=== PATIENT | female | born 1975 | race African-American/Black ===

== ENCOUNTER 2016-11-07 14:38 | Emergency (ER) | payer MEDICAID ==
[~2016-11-07] VITALS: Ht 144.8 cm; Wt 50.0 kg
[~2016-11-07 14:38] MED LIST: AMOX500T PO; BENA25TA8 PO; DEXTLIQ PO; FERR325T PO; MOTR200T PO
[2016-11-07 14:41] VITALS: BP 108/53; PULSE 53; RESP 16; TEMP 98.9; O2SAT 96
[2016-11-07] MEDS ORDERED: TRICTAB PO (15:05)
[2016-11-07 15:19] LABS: MEAN CORPUSCULAR HGB CONC 36.5 % (32.0-36.0)
--- NOTE | 2016-11-07 15:19 | PD ---
HPI Chief Complaint: Syncope/Near-Syncope Time Seen by Provider: 15:20 Travel History International Travel<30 days: No Contact w/Intl Traveler<30days: No Traveled to known affect area: No History of Present Illness HPI This is a 41-year-old female who is with a last menstrual period of August 06 estimated around 13 weeks . She presents for evaluation of syncopal episode. She reports that prior to arrival she was walking from her car to a store when she felt dizzy and then passed out. This was reportedly witnessed by her sister who is not present at this time. There is no reported seizure activity and the syncopal episode was brief. She does have a recorded history of seizure disorder. At this point in time the patient is feeling somewhat lightheaded but otherwise feels fine. She has had no chest pain, shortness of breath, nausea or vomiting, abdominal pain, vaginal bleeding , dysuria, flank pain. The patient currently sees resident Dr. August for her care. She saw her yesterday. She has an appointment for her first ultrasound for screening and dating scheduled for tomorrow. Denies any recent illness. She says that she has been eating and drinking normally. No other complaints. PFSH Past Medical History Diminished Hearing: No Seizures: Yes Ulcer: Yes (STATES SHE HAD CROHN"S DISEASE BUT IT "WENT AWAY") ?: LMP: 08/06/16 : 5 Para: 2 Miscarriage: 3 : 0 Social History Alcohol Use: No Tobacco Use: No Substance Use: No Allergies-Medications (Allergen,Severity, Reaction): Coded Allergies: Valproic Acid (Verified Allergy, Severe, 11/07/16) HIVES Carbamazepine (Verified Allergy, Mild, Rash, 11/07/16) Reported Meds & Prescriptions Reported Meds & Active Scripts Active Reported Ferrous Sulfate 325 Mg Tab 325 Mg PO DAILY ( Vit-Ferrous Fumarate) 1 Tab Tab 1 Tab PO DAILY Review of Systems Except as stated in HPI: all other systems reviewed are Neg Physical Exam Narrative GENERAL: Well developed well-nourished female in no acute distress SKIN: Warm and dry. HEAD: Atraumatic. Normocephalic. EYES: Pupils equal and round. No scleral icterus. No injection or drainage. ENT: No nasal bleeding or discharge. Mucous membranes pink and moist. NECK: Trachea midline. No JVD. CARDIOVASCULAR: Regular rate and rhythm. No murmur appreciated. RESPIRATORY: No accessory muscle use. Clear to auscultation. Breath sounds equal bilaterally. GASTROINTESTINAL: Abdomen soft, non-tender. No guarding. MUSCULOSKELETAL: No obvious deformities. No edema NEUROLOGICAL: Awake and alert. No obvious cranial nerve deficits. Motor grossly within normal limits. Normal speech. PSYCHIATRIC: Appropriate mood and affect; insight and judgment normal. Data Data Last Documented VS Vital Signs Date Time Temp Pulse Resp B/P Pulse Ox O2 Delivery O2 Flow Rate FiO2 11/07/16 16:59 70 16 109/53 98 Room Air 11/07/16 14:41 98.9 Orders Electrocardiogram (11/07/16 15:18) Complete Blood Count With Diff (11/07/16 15:18) Comprehensive Metabolic Panel (11/07/16 15:18) Magnesium (Mg) (11/07/16 15:18) Urinalysis - C+S If Indicated (11/07/16 15:18) Beta Hcg (Quant/Titer) (11/07/16 15:19) Urine Culture (11/07/16 14:24) Labs Laboratory Tests Test 11/07/16 11/07/16 14:24 15:51 Urine Color YELLOW Urine Turbidity HAZY Urine pH 6.5 Urine Specific [place] 1.031 Urine Protein 30 mg/dL Urine Glucose (UA) NEG mg/dL Urine Ketones NEG mg/dL Urine Occult Blood NEG Urine Nitrite NEG Urine Bilirubin NEG Urine Urobilinogen 8.0 MG/DL Urine Leukocyte Esterase SMALL Urine RBC 6 /hpf Urine WBC 8 /hpf Urine WBC Clumps RARE Urine Squamous Epithelial 7 /hpf Cells Urine Amorphous Sediment RARE Urine Bacteria RARE /hpf Urine Mucus MANY /lpf Microscopic Urinalysis Comment CULTURE INDICATED White Blood Count 6.5 TH/MM3 Red Blood Count 3.17 MIL/MM3 Hemoglobin 9.4 GM/DL Hematocrit 25.9 % Mean Corpuscular Volume 81.5 FL Mean Corpuscular Hemoglobin 29.8 PG Mean Corpuscular Hemoglobin 36.5 % Concent Red Cell Distribution Width 13.0 % Platelet Count 284 TH/MM3 Mean Platelet Volume 7.2 FL Neutrophils (%) (Auto) 62.8 % Lymphocytes (%) (Auto) 19.8 % Monocytes (%) (Auto) 14.6 % Eosinophils (%) (Auto) 2.5 % Basophils (%) (Auto) 0.3 % Neutrophils # (Auto) 4.1 TH/MM3 Lymphocytes # (Auto) 1.3 TH/MM3 Monocytes # (Auto) 1.0 TH/MM3 Eosinophils # (Auto) 0.2 TH/MM3 Basophils # (Auto) 0.0 TH/MM3 CBC Comment AUTO DIFF Differential Comment AUTO DIFF CONFIRMED Platelet Estimate NORMAL Platelet Morphology Comment NORMAL Sodium Level 137 MEQ/L Potassium Level 3.6 MEQ/L Chloride Level 102 MEQ/L Carbon Dioxide Level 26.9 MEQ/L Anion Gap 8 MEQ/L Blood Urea Nitrogen 11 MG/DL Creatinine 0.55 MG/DL Estimat Glomerular Filtration 146 ML/MIN Rate Random Glucose 85 MG/DL Calcium Level 9.8 MG/DL Magnesium Level 1.9 MG/DL Total Bilirubin 0.3 MG/DL Aspartate Amino Transf 16 U/L (AST/SGOT) Alanine Aminotransferase 27 U/L (ALT/SGPT) Alkaline Phosphatase 50 U/L Total Protein 7.6 GM/DL Albumin 3.7 GM/DL Human Chorionic Gonadotropin, 15862 MIU/ML Quant MDM Medical Decision Making Medical Screen Exam Complete: Yes Emergency Medical Condition: Yes Medical Record Reviewed: Yes Differential Diagnosis Vasovagal syncope, orthostatic hypotension, dehydration, arrhythmia, electrolyte abnormality, hypoglycemia, ruptured ectopic Narrative Course This is a 41-year-old female currently last menstrual period approximately August 06 presents for evaluation after a witnessed syncopal episode prior to arrival. This patient was initially seen in triage were basic lab work, EKG and pelvic ultrasound been ordered. The patient will be moved to a medical bed and one becomes bill. Ajith Burleson Nov 07, 2016 15:19
[2016-11-07 16:15] LABS: AUTOMATED NEUTROPHIL # 4.1 TH/MM3 (1.8-7.7); BASOPHIL % 0.3 % (0.0-2.0); EOSINOPHIL # 0.2 TH/MM3 (0-0.4); EOSINOPHIL % 2.5 % (0.0-4.0); HEMATOCRIT 25.9 % (35.0-46.0); LYMPH % 19.8 % (9.0-44.0); LYMPHOCYTE # 1.3 TH/MM3 (1.0-4.8); MEAN CELL VOLUME 81.5 FL (80.0-100.0); MEAN CORPUSCULAR HEMOGLOBIN 29.8 PG (27.0-34.0); MONO % 14.6 % (0.0-8.0); NEUT % 62.8 % (16.0-70.0); PLATELET COUNT 284 TH/MM3 (150-450); RED BLOOD COUNT 3.17 MIL/MM3 (4.00-5.30); WHITE BLOOD COUNT 6.5 TH/MM3 (4.0-11.0)
[2016-11-07 16:18] LABS: HEMO FLAGS AUTO DIFF
[2016-11-07 16:29] LABS: ALT (GPT) 27 U/L (10-53); ANION GAP 8 MEQ/L (5-15); AST (GOT) 16 U/L (15-37); BICARBONATE 26.9 MEQ/L (21.0-32.0); BLOOD UREA NITROGEN 11 MG/DL (7-18); CHLORIDE 102 MEQ/L (98-107); GLOMERULAR FILTRATION RATE 146 ML/MIN (>89); MAGNESIUM 1.9 MG/DL (1.5-2.5); POTASSIUM 3.6 MEQ/L (3.5-5.1); SODIUM (NA) 137 MEQ/L (136-145)
[2016-11-07 16:31] LABS: ALKALINE PHOSPHATASE 50 U/L (45-117); TOTAL BILIRUBIN ADULT 0.3 MG/DL (0.2-1.0)
[2016-11-07 16:44] LABS: BETA HCG QUANT 47726 MIU/ML (0-5)
[2016-11-07 16:59] VITALS: BP 109/53; PULSE 70; RESP 16; O2SAT 98
[2016-11-07 17:00] LABS: BACTERIA, URINE RARE /hpf; BLOOD, URINE NEG (NEG); GLUCOSE,URINE NEG (NEG); KETONE, URINE NEG (NEG); MUCUS URINE MANY /lpf (OCC); NITRITE,URINE NEG (NEG); PH, URINE 6.5 (5.0-8.5); SQUAMOUS EPITHELIAL CELL URINE 7 /hpf (0-5); URINE COLOR YELLOW (YELLW/STRAW)
[2016-11-07] MEDS ORDERED: FERR325T PO (17:01)
[2016-11-07 17:02] LABS: COMMENT (UR) CULTURE INDICATED; CULTURE IF INDICATED CULTURE INDICATED
[2016-11-07 17:16] LABS: PLATELET ESTIMATE SMEAR NORMAL (NORMAL); PLATELET MORPHOLOGY NORMAL (NORMAL); SCAN/DIFF AUTO DIFF CONFIRMED
--- NOTE | 2016-11-07 17:21 | PD ---
Physical Exam Time Seen by Provider: 17:12 Narrative 41-year-old female approximately 13 weeks presents to the emergency department for evaluation of lightheadedness and syncopal event. Patient seen by provider in triage are initiated workup, please see his documentation. The patient states that she was walking across the [employer] parking lot with her sister when she began to feel lightheaded and passed out. States that her sister caught her, she did not land on the ground or hit her head. States that she immediately woke up. States that she has felt slightly lightheaded since this occurred but has had no more episodes of syncope. She denies any pain. Denies any chest pain, shortness of breath, nausea, vomiting, abdominal pain, vaginal bleeding, bloody stool, black stool, cough or cold symptoms. States that she is following up over at the [facility] for her and has an appointment tomorrow. No other complaints. GENERAL: Well-nourished and well-developed pleasant female patient in no acute distress who is nontoxic appearing. SKIN: Warm and dry. HEAD: Normocephalic and atraumatic. EYES: No injection, drainage, or hyphema noted. PERRLA. EOMI. ENT: No nasal drainage noted. Oropharynx is clear. NECK: Supple and the trachea is midline. CARDIOVASCULAR: Regular rate and rhythm. RESPIRATORY: Breath sounds are equal bilaterally with no accessory muscle use, wheezing, rhonchi, or crackles. GASTROINTESTINAL: Abdomen is soft, non-tender, and nondistended. RECTAL EXAM: No masses or tenderness, stool is brown. Performed in the presence of Ning MARTIN. MUSCULOSKELETAL: No obvious deformities, swelling, cyanosis, or ecchymosis is present throughout the upper and lower extremities. Patient has full range of motion without any signs of neurovascular compromise. Strength 5/5 upper and lower extremities equal bilaterally. NEUROLOGICAL: Awake, alert, and oriented. Normal speech and gait. Cranial nerves are grossly intact. Data Data Last Documented VS Vital Signs Date Time Temp Pulse Resp B/P Pulse Ox O2 Delivery O2 Flow Rate FiO2 11/07/16 16:59 70 16 109/53 98 Room Air 11/07/16 14:41 98.9 Orders Electrocardiogram (11/07/16 15:18) Complete Blood Count With Diff (11/07/16 15:18) Comprehensive Metabolic Panel (11/07/16 15:18) Magnesium (Mg) (11/07/16 15:18) Urinalysis - C+S If Indicated (11/07/16 15:18) Beta Hcg (Quant/Titer) (11/07/16 15:19) Urine Culture (11/07/16 14:24) Labs Laboratory Tests Test 11/07/16 11/07/16 14:24 15:51 Urine Color YELLOW Urine Turbidity HAZY Urine pH 6.5 Urine Specific [place] 1.031 Urine Protein 30 mg/dL Urine Glucose (UA) NEG mg/dL Urine Ketones NEG mg/dL Urine Occult Blood NEG Urine Nitrite NEG Urine Bilirubin NEG Urine Urobilinogen 8.0 MG/DL Urine Leukocyte Esterase SMALL Urine RBC 6 /hpf Urine WBC 8 /hpf Urine WBC Clumps RARE Urine Squamous Epithelial 7 /hpf Cells Urine Amorphous Sediment RARE Urine Bacteria RARE /hpf Urine Mucus MANY /lpf Microscopic Urinalysis Comment CULTURE INDICATED White Blood Count 6.5 TH/MM3 Red Blood Count 3.17 MIL/MM3 Hemoglobin 9.4 GM/DL Hematocrit 25.9 % Mean Corpuscular Volume 81.5 FL Mean Corpuscular Hemoglobin 29.8 PG Mean Corpuscular Hemoglobin 36.5 % Concent Red Cell Distribution Width 13.0 % Platelet Count 284 TH/MM3 Mean Platelet Volume 7.2 FL Neutrophils (%) (Auto) 62.8 % Lymphocytes (%) (Auto) 19.8 % Monocytes (%) (Auto) 14.6 % Eosinophils (%) (Auto) 2.5 % Basophils (%) (Auto) 0.3 % Neutrophils # (Auto) 4.1 TH/MM3 Lymphocytes # (Auto) 1.3 TH/MM3 Monocytes # (Auto) 1.0 TH/MM3 Eosinophils # (Auto) 0.2 TH/MM3 Basophils # (Auto) 0.0 TH/MM3 CBC Comment AUTO DIFF Differential Comment AUTO DIFF CONFIRMED Platelet Estimate NORMAL Platelet Morphology Comment NORMAL Sodium Level 137 MEQ/L Potassium Level 3.6 MEQ/L Chloride Level 102 MEQ/L Carbon Dioxide Level 26.9 MEQ/L Anion Gap 8 MEQ/L Blood Urea Nitrogen 11 MG/DL Creatinine 0.55 MG/DL Estimat Glomerular Filtration 146 ML/MIN Rate Random Glucose 85 MG/DL Calcium Level 9.8 MG/DL Magnesium Level 1.9 MG/DL Total Bilirubin 0.3 MG/DL Aspartate Amino Transf 16 U/L (AST/SGOT) Alanine Aminotransferase 27 U/L (ALT/SGPT) Alkaline Phosphatase 50 U/L Total Protein 7.6 GM/DL Albumin 3.7 GM/DL Human Chorionic Gonadotropin, 15744 MIU/ML Quant MDM Supervised Visit with AILEEN: No Differential Diagnosis Symptomatic anemia versus ectopic versus dehydration versus allegedly abnormality Narrative Course 41-year-old female 13 weeks presents to the emergency department for evaluation of lightheadedness and syncopal episode. Patient is afebrile, vital signs are stable. Physical examination is essentially unremarkable. Patient appears well overall. Stool is guaiac negative. She is not having any vaginal bleeding. Labs were ordered per triage provider. CBC shows anemia with hemoglobin of 9.4, hematocrit 25.9. I did look in the patient's EMR which shows last week she had outpatient labs and her hemoglobin was 10.8. CMP is unremarkable. Beta HcG is 47,726. Urinalysis shows 30 protein, he 0.0 urobilinogen, small leukocyte esterase, 6 red blood cells, 8 blood cells, rare bacteria, rare white blood cell clumps, many mucus. Ultrasound confirms IUP. Patient will be treated for urinary tract infection with Macrobid. She has remained stable and without complaint while here in the emergency department. She ambulates without difficulty and her lightheadedness has nearly resolved. She has an appointment with her OBGYN tomorrow. Will include in discharge paperwork to have repeat CBC tomorrow to assess any drop in hemoglobin. Instructed to return if worsening lightheadedness, chest pain, shortness of breath, syncope, etc. Patient verbalizes understanding and is in agreement with treatment plan. I discussed the case with my attending physician Dr. Esquivel who is aware of the patients history, physical examination findings, and treatment plan. Diagnosis Primary Impression: Syncope Qualified Code: R55 - Syncope, unspecified syncope type Additional Impressions: Anemia Qualified Code: D64.9 - Anemia, unspecified type Urinary tract infection Qualified Code: N39.0 - Urinary tract infection with hematuria, site unspecified Intrauterine Referrals: Social Group Worker Primary Care Physician Patient Instructions: General Instructions Additional Instruction: Take medication as prescribed with food and a full glass of water. Follow-up with your Primary Care Physician/Social Group Worker tomorrow and get a repeat CBC to evaluate for any change in Hbg/Hct. Return to the ED for any acute worsening of symptoms. Med/Other Pt SpecificInfo: Prescription(s) given Scripts Nitrofurantoin Monohydrate Macrocrystals (Macrobid)100 Mg [id number] Mg PO BID 10 Days Ref 0 Prov:Tod Esquivel MD 11/07/16 Disposition: 01 DISCHARGE HOME Condition: Stable Lulú Medel Nov 07, 2016 17:21
[2016-11-07] MEDS ORDERED: MACR100C2 PO (17:50)
--- NOTE | 2016-11-07 17:54 | PD ---
Data Data Last Documented VS Vital Signs Date Time Temp Pulse Resp B/P Pulse Ox O2 Delivery O2 Flow Rate FiO2 11/07/16 16:59 70 16 109/53 98 Room Air 11/07/16 14:41 98.9 Orders Electrocardiogram (11/07/16 15:18) Complete Blood Count With Diff (11/07/16 15:18) Comprehensive Metabolic Panel (11/07/16 15:18) Magnesium (Mg) (11/07/16 15:18) Urinalysis - C+S If Indicated (11/07/16 15:18) Beta Hcg (Quant/Titer) (11/07/16 15:19) Urine Culture (11/07/16 14:24) Labs Laboratory Tests Test 11/07/16 11/07/16 14:24 15:51 Urine Color YELLOW Urine Turbidity HAZY Urine pH 6.5 Urine Specific [place] 1.031 Urine Protein 30 mg/dL Urine Glucose (UA) NEG mg/dL Urine Ketones NEG mg/dL Urine Occult Blood NEG Urine Nitrite NEG Urine Bilirubin NEG Urine Urobilinogen 8.0 MG/DL Urine Leukocyte Esterase SMALL Urine RBC 6 /hpf Urine WBC 8 /hpf Urine WBC Clumps RARE Urine Squamous Epithelial 7 /hpf Cells Urine Amorphous Sediment RARE Urine Bacteria RARE /hpf Urine Mucus MANY /lpf Microscopic Urinalysis Comment CULTURE INDICATED White Blood Count 6.5 TH/MM3 Red Blood Count 3.17 MIL/MM3 Hemoglobin 9.4 GM/DL Hematocrit 25.9 % Mean Corpuscular Volume 81.5 FL Mean Corpuscular Hemoglobin 29.8 PG Mean Corpuscular Hemoglobin 36.5 % Concent Red Cell Distribution Width 13.0 % Platelet Count 284 TH/MM3 Mean Platelet Volume 7.2 FL Neutrophils (%) (Auto) 62.8 % Lymphocytes (%) (Auto) 19.8 % Monocytes (%) (Auto) 14.6 % Eosinophils (%) (Auto) 2.5 % Basophils (%) (Auto) 0.3 % Neutrophils # (Auto) 4.1 TH/MM3 Lymphocytes # (Auto) 1.3 TH/MM3 Monocytes # (Auto) 1.0 TH/MM3 Eosinophils # (Auto) 0.2 TH/MM3 Basophils # (Auto) 0.0 TH/MM3 CBC Comment AUTO DIFF Differential Comment AUTO DIFF CONFIRMED Platelet Estimate NORMAL Platelet Morphology Comment NORMAL Sodium Level 137 MEQ/L Potassium Level 3.6 MEQ/L Chloride Level 102 MEQ/L Carbon Dioxide Level 26.9 MEQ/L Anion Gap 8 MEQ/L Blood Urea Nitrogen 11 MG/DL Creatinine 0.55 MG/DL Estimat Glomerular Filtration 146 ML/MIN Rate Random Glucose 85 MG/DL Calcium Level 9.8 MG/DL Magnesium Level 1.9 MG/DL Total Bilirubin 0.3 MG/DL Aspartate Amino Transf 16 U/L (AST/SGOT) Alanine Aminotransferase 27 U/L (ALT/SGPT) Alkaline Phosphatase 50 U/L Total Protein 7.6 GM/DL Albumin 3.7 GM/DL Human Chorionic Gonadotropin, 50173 MIU/ML Quant MDM Supervised Visit with AILEEN: Yes Narrative Course I, Dr. Esquivel, have reviewed the advance practice practitioner's documentation and am in agreement, met with the patient face to face, made the diagnosis, and the medical decision making was done by me. See her note for further details. Briefly is a 41-year-old female who is approximately 12 weeks who is here for evaluation of syncopal episode. The patient has history of seizures and syncopal episodes. Vital signs are within normal limits. Hemoglobin is 9.4. Patient reports that she was started on vitamins with iron because of anemia. Hemoglobin last week was 10.8. Bedside ultrasound performed by me shows a large IUP with a heart rate of 154 bpm. Patient denies vaginal bleeding or discharge. No melena or hematochezia. Stool is heme negative and brown. Patient states that she feels a lot better while in the emergency department. She has no chest pain or dyspnea. I do not believe that she had a PE. She would like to be discharged home and she has appointment scheduled for tomorrow. She will follow-up with her primary physician/medical language specialist tomorrow for repeat hemoglobin. She was informed on when to return to the emergency department pitcher verbalizes understanding and agreement with plan. Procedures Procedure Narrative Transabdominal bedside ultrasound: Using the curvilinear ultrasound probe, transabdominal ultrasound was performed by me and shows a large IUP with a heart rate of 154 bpm. Diagnosis Primary Impression: Syncope Additional Impressions: Urinary tract infection Anemia Scripts Nitrofurantoin Monohydrate Macrocrystals (Macrobid)100 Mg [id number] Mg PO BID 10 Days Ref 0 Prov:Tod Esquivel MD 11/07/16 Tod Esquivel MD Nov 07, 2016 17:54
--- NOTE | 2016-11-08 14:42 | EKG ---
Date Performed: 11/07/2016 Time Performed: 15:44:21 PTAGE: 41 years EKG: Sinus rhythm POSSIBLE LEFT ATRIAL ENLARGEMENT SEPTAL MYOCARDIAL INFARCTION ABNORMAL ECG Compared to prior tracing no significant change PREVIOUS TRACING : 02/26/2011 15.31 DOCTOR: Joseph Daley Interpretating Date/Time 11/08/2016 14:39:36
[2016-12-04] MEDS ORDERED: FERR325T PO (13:38)
[2016-12-19] MEDS ORDERED: PERI8.6T PO (10:43)
[2017-01-02] MEDS ORDERED: TRICTAB PO (08:47)
[2017-01-16] MEDS ORDERED: MACR100C3 PO (09:51)
[2017-01-16] MEDS ORDERED: PERI8.6T PO (10:37)
[2017-01-16] MEDS ORDERED: SE-NTAB3 PO (10:37)
[2017-01-16] MEDS ORDERED: CEPH500C PO (10:43)
[2017-01-31] MEDS ORDERED: LAMO150 PO (14:47)
== END 2016-11-07 18:45 | disposition home or self-care (01) ==
LOC: NEPC 14:38
DX: O26.891 Other specified pregnancy related conditions, first trimester (principal); R55 Syncope and collapse; O99.011 Anemia complicating pregnancy, first trimester; D64.9 Anemia, unspecified; O23.41 Unspecified infection of urinary tract in pregnancy, first trimester; R31.9 Hematuria, unspecified; R94.31 Abnormal electrocardiogram [ECG] [EKG]; Z86.69 Personal history of other diseases of the nervous system and sense organs; Z3A.13 13 weeks gestation of pregnancy
CPT/HCPCS: 80053; 81001; 83735; 84702; 85025; 87086; 93005

== ENCOUNTER → 2016-11-08 | Outpatient (CLI) | payer MEDICAID ==
[~2016-11-08] MED LIST changes: -AMOX500T PO; -BENA25TA8 PO; +CEPH500C PO; -DEXTLIQ PO; +LAMO150 PO; +MACR100C2 PO; +MACR100C3 PO; -MOTR200T PO; +PERI8.6T PO; +SE-NTAB3 PO; +TRICTAB PO
== END ==
LOC: HPND 07:55
PROVIDERS: ATTEND Family Medicine
DX: O09.521 Supervision of elderly multigravida, first trimester (principal); O99.351 Diseases of the nervous system complicating pregnancy, first trimester
CPT/HCPCS: 76801

== ENCOUNTER → 2016-12-18 | Outpatient (CLI) | payer MEDICAID ==
[~2016-12-18] MED LIST changes: +ADACINJ3 IM; +TETA1INJ6 IM
== END ==
LOC: HPND 09:12
PROVIDERS: ATTEND Family Medicine
DX: O09.522 Supervision of elderly multigravida, second trimester (principal); O99.352 Diseases of the nervous system complicating pregnancy, second trimester; R56.9 Unspecified convulsions
CPT/HCPCS: 76811

== ENCOUNTER → 2017-01-30 | Outpatient (CLI) | payer MEDICAID | LOC: HPND 07:59 | PROVIDERS: ATTEND Family Medicine | DX: O99.352 Diseases of the nervous system complicating pregnancy, second trimester (principal); O09.522 Supervision of elderly multigravida, second trimester | CPT/HCPCS: 76816; 76825; 76827; 93325 ==

== ENCOUNTER → 2017-02-25 | Outpatient (CLI) | payer MEDICAID ==
[~2017-02-25] MED LIST changes: -ADACINJ3 IM; -CEPH500C PO; -MACR100C2 PO; -MACR100C3 PO; -TETA1INJ6 IM
== END ==
LOC: HPND 07:46
PROVIDERS: ATTEND Family Medicine
DX: O09.522 Supervision of elderly multigravida, second trimester (principal); O99.352 Diseases of the nervous system complicating pregnancy, second trimester; R56.9 Unspecified convulsions
CPT/HCPCS: 76816

== ENCOUNTER → 2017-03-25 | Outpatient (CLI) | payer MEDICAID | LOC: HPND 08:04 | PROVIDERS: ATTEND Family Medicine | DX: O09.523 Supervision of elderly multigravida, third trimester (principal); O99.353 Diseases of the nervous system complicating pregnancy, third trimester; Z3A.33 33 weeks gestation of pregnancy | CPT/HCPCS: 76816 ==

== ENCOUNTER → 2017-03-27 | Outpatient (CLI) | payer MEDICAID ==
[~2017-03-27] MED LIST changes: +CEPH-460 PO; +IBUP-232 PO; +OXYC1TAB63 PO; +SENN1TAB PO
== END ==
LOC: HPND 10:03
PROVIDERS: ATTEND Family Medicine
DX: O09.523 Supervision of elderly multigravida, third trimester (principal); O99.353 Diseases of the nervous system complicating pregnancy, third trimester; O35.1XX0 Maternal care for (suspected) chromosomal abnormality in fetus, not applicable or unspecified
CPT/HCPCS: 76815

== ENCOUNTER → 2017-04-03 | Outpatient (CLI) | payer MEDICAID | LOC: HPND 09:11 | PROVIDERS: ATTEND Family Medicine | DX: O09.523 Supervision of elderly multigravida, third trimester (principal); O40.3XX0 Polyhydramnios, third trimester, not applicable or unspecified; O35.8XX0 Maternal care for other (suspected) fetal abnormality and damage, not applicable or unspecified | CPT/HCPCS: 76815 ==

== ENCOUNTER → 2017-05-02 | Emergency (ER) | payer MEDICAID ==
--- NOTE | 2017-05-02 14:57 | PD ---
HPI Chief Complaint Labor Check Date Seen: May 02, 2017 Travel History International Travel<30 Days: No Contact w/Intl Traveler<30Days: No History of Present Illness HPI Mrs. Sommers is a 41-year-old at 38/2 weeks gestation presenting from the family medicine clinic for labor check. She states that she is feeling contractions every 2-3 minutes. She reports that her contractions started last night and continued since that time. She endorses good movement and denies any dysuria, vaginal bleeding, discharge, or loss of fluid. She is a patient of the [facility] and Dr. August is her provider. Of note she does have a seizure disorder which is currently controlled on Lamictal twice a day. Weeks Gestation: 38 Para: 2 : 1 History Past Medical History Narrative Medical Seizure disorder Chronic back pain Obstetric History Obstetric History Past Surgical History Surgical History: No Previous Surgery Family History Family History: Negative Social History Narrative Social History Patient stopped tobacco use once she found out when she was in [place]. Denies alcohol or illicit drug use. Allergies-Medications (Allergen,Severity, Reaction): Coded Allergies: valproic acid (Unverified Allergy, Severe, 05/02/17) HIVES carbamazepine (Unverified Allergy, Mild, Rash, 05/02/17) Home Meds Active Scripts Cephalexin (Keflex) 500 Mg Cap, 500 MG PO Q12H for Infection, #14 CAP 0 Refills Prov:Aleena August MD R3 04/08/17 Vit W/ Docusate-Fe Fu (Se- 19 29-1 mg) 1 Tab Tab, 1 TAB PO DAILY for Nutritional Supplement, #30 TAB 6 Refills Prov:Aleena August MD R3 03/18/17 Lamotrigine (Lamictal) 150 Mg Tab, 150 MG PO DAILY for Control Seizures, #60 TAB 0 Refills Prov:Oneyda Spann MD 01/31/17 Sennosides-Docusate Sodium (Yue-Colace) 8.6-50 Mg Tab, 2 TAB PO BID for Constipation, #120 TAB 3 Refills Prov:Aleena August MD R3 12/19/16 Ferrous Sulfate (Ferrous Sulfate) 325 Mg Tab, 325 MG PO BID for Nutritional Supplement, #60 TAB 0 Refills Prov:Aleena August MD R3 12/04/16 Reported Medications Vit-Ferrous Fumarate () 1 Tab Tab, 1 TAB PO DAILY for Nutritional Supplement, #30 TAB 0 Refills 11/07/16 Review of Systems Except as stated in HPI: all other systems reviewed are Neg Physical Exam Narrative GENERAL: Well-nourished, well-developed patient. SKIN: Warm and dry. HEAD: Normocephalic and atraumatic. EYES: No scleral icterus. No injection or drainage. ENT: No nasal drainage noted. Mucous membranes pink. Airway patent. NECK: Supple, trachea midline. No JVD. CARDIOVASCULAR: Regular rate and rhythm without murmurs, gallops, or rubs. RESPIRATORY: Breath sounds equal bilaterally. No accessory muscle use. ABDOMEN/GI: Abdomen soft, non-tender, bowel sounds present, no rebound, no guarding Gravid to 38 GENITOURINARY: External Genitalia: intact and normal in appearance Cervix: Posterior Dilatation: 1cm Effacement: Thick Station: -3 Membranes: Intact Uterine Contractions: Every 6 minutes FHT's: Category: 1 Baseline: 140 Reactive: Positive Variability: Moderate Decels: None EXTREMITIES: No cyanosis or edema. BACK: Nontender without obvious deformity. No CVA tenderness. NEUROLOGICAL: Awake and alert. Motor and sensory grossly within normal limits. Five out of 5 muscle strength in all muscle groups. Normal speech. Data Data Vital Signs Reviewed: Yes Group B Strep: Negative Labs GBS negative per Dr. August [facility] Medical Record Reviewed: Yes Plan Mrs. Sommers is a 41-year-old at 38/2 weeks gestation presenting from the family medicine clinic for labor check. 1. IUP at 38 weeks -Continue her routine antepartum care -Encourage oral hydration -Continue vitamin -Urine dipstick in clinic today, 05/02: Protein 30+, otherwise negative 2. Seizure disorder -Continue Lamictal as prescribed -Last dose 2AM today, 05/02 SDW: Dr. Santamaria Disposition: 01 DISCHARGE HOME Condition: Stable Patient Instructions: General Instructions, Early Labor Signs (ED), Having Your Baby: The Labor Process (GEN) Rah Lin MD R2 May 02, 2017 14:57
--- NOTE | 2017-05-02 17:43 | PD ---
HPI Travel History International Travel<30 Days: No Contact w/Intl Traveler<30Days: No Known Affected Area: No Allergies-Medications (Allergen,Severity, Reaction): Coded Allergies: valproic acid (Unverified Allergy, Severe, 05/02/17) HIVES carbamazepine (Unverified Allergy, Mild, Rash, 05/02/17) Home Meds Active Scripts Cephalexin (Keflex) 500 Mg Cap, 500 MG PO Q12H for Infection, #14 CAP 0 Refills Prov:Aleena August MD R3 04/08/17 Vit W/ Docusate-Fe Fu (Se- 19 29-1 mg) 1 Tab Tab, 1 TAB PO DAILY for Nutritional Supplement, #30 TAB 6 Refills Prov:Aleena August MD R3 03/18/17 Lamotrigine (Lamictal) 150 Mg Tab, 150 MG PO DAILY for Control Seizures, #60 TAB 0 Refills Prov:Oneyda Spann MD 01/31/17 Sennosides-Docusate Sodium (Yue-Colace) 8.6-50 Mg Tab, 2 TAB PO BID for Constipation, #120 TAB 3 Refills Prov:Aleena August MD R3 12/19/16 Ferrous Sulfate (Ferrous Sulfate) 325 Mg Tab, 325 MG PO BID for Nutritional Supplement, #60 TAB 0 Refills Prov:Aleena August MD R3 12/04/16 Reported Medications Vit-Ferrous Fumarate () 1 Tab Tab, 1 TAB PO DAILY for Nutritional Supplement, #30 TAB 0 Refills 11/07/16 Physical Exam Narrative GENERAL: Well-nourished, well-developed patient. SKIN: Warm and dry. HEAD: Normocephalic and atraumatic. EYES: No scleral icterus. No injection or drainage. ENT: No nasal drainage noted. Mucous membranes pink. Airway patent. NECK: Supple, trachea midline. No JVD. CARDIOVASCULAR: Regular rate and rhythm without murmurs, gallops, or rubs. RESPIRATORY: Breath sounds equal bilaterally. No accessory muscle use. BREASTS: Bilateral exam showed no masses , no retractions, no nipple discharge. ABDOMEN/GI: Abdomen soft, non-tender, bowel sounds present, no rebound, no guarding Gravid to [-] weeks size Fundal Height: [-] GENITOURINARY: External Genitalia: intact and normal in appearance BUS glands: [-] Cervix: [-] Dilatation: [-] Effacement: [-] Station: [-] Presentation: [-] Membranes: [intact or ruptured] Uterine Contractions: [-] FHT's: Category: [-] Baseline: [-] Reactive: [-] Variability: [-] Decels: [-] EXTREMITIES: No cyanosis or edema. BACK: Nontender without obvious deformity. No CVA tenderness. NEUROLOGICAL: Awake and alert. Motor and sensory grossly within normal limits. Five out of 5 muscle strength in all muscle groups. Normal speech. MDM Diagnosis Diagnosis: Primary Impression: False labor after 37 weeks of gestation without delivery Disposition: 01 DISCHARGE HOME Condition: Stable Patient Instructions: General Instructions, Early Labor Signs (ED), Having Your Baby: The Labor Process (GEN), Movement (ED), at 35 to 38 Weeks (ED), Kick Counts in (ED) Departure Forms: Tests/Procedures Jaspreet Santamaria II, MD May 02, 2017 17:43
== END | disposition home or self-care (01) ==
LOC: HOBED 14:32
DX: O47.1 False labor at or after 37 completed weeks of gestation (principal); O26.893 Other specified pregnancy related conditions, third trimester; G40.909 Epilepsy, unspecified, not intractable, without status epilepticus; Z3A.38 38 weeks gestation of pregnancy; Z79.899 Other long term (current) drug therapy
CPT/HCPCS: 59025

== ENCOUNTER 2017-05-20 19:51 | Inpatient (IN) | payer MEDICAID ==
[~2017-05-20] VITALS: Ht 144.8 cm; Wt 65.0 kg
[~2017-05-20 19:51] MED LIST changes: -IBUP-232 PO; -OXYC1TAB63 PO; -SENN1TAB PO
[2017-05-20] MEDS ORDERED: SODIUM CHLORIDE 0.9% FLUSH 10 ML FLUSH IV FLUSH PRN (20:15)
--- NOTE | 2017-05-20 20:20 | HHI.HP ---
HPI Chief Complaint Induction of labor Date Seen: May 20, 2017 Time Seen: 20:42 (Chay Sommers MD, R3) Travel History International Travel<30 Days: No Contact w/Intl Traveler<30Days: No Known Affected Area: No (Chay Sommers MD, R3) History of Present Illness HPI 41-year-old at 41.0 presents to OB triage by her PCP for induction of labor. GBS negative. Patient is feeling the baby move normally. She thinks she may have lost some fluid yesterday. She denies vaginal bleeding. Denies fever or chills. She feels the baby move normally. She has been feeling abdominal contractions every 5-6 minutes. She says she usually gets contractions at night, and at no other time. No other complaints at this time. Weeks Gestation: 41 Para: 2 : 4 (Chay Sommers MD, R3) History Past Medical History Narrative Medical Seizure disorder Iron deficiency anemia (Chay Sommers MD, R3) Obstetric History Obstetric History care with Dr. August (Chay Sommers MD, R3) Past Surgical History Surgical History: No Previous Surgery (Chay Sommers MD, R3) Family History Family History: Negative (Chay Sommers MD, R3) Social History Alcohol Use: No Tobacco Use: Yes (2 cigarettes per day) Substance Abuse: No (Chay Sommers MD, R3) Allergies-Medications (Allergen,Severity, Reaction): Coded Allergies: valproic acid (Unverified Allergy, Severe, 05/17/17) HIVES carbamazepine (Unverified Allergy, Mild, Rash, 05/17/17) Home Meds Active Scripts Cephalexin (Keflex) 500 Mg Cap, 500 MG PO Q12H for Infection, #14 CAP 0 Refills Prov:Aleena August MD R3 04/08/17 Vit W/ Docusate-Fe Fu (Se- 19 29-1 mg) 1 Tab Tab, 1 TAB PO DAILY for Nutritional Supplement, #30 TAB 6 Refills Prov:Aleena August MD R3 03/18/17 Lamotrigine (Lamictal) 150 Mg Tab, 150 MG PO DAILY for Control Seizures, #60 TAB 0 Refills Prov:Oneyda Spann MD 01/31/17 Sennosides-Docusate Sodium (Yue-Colace) 8.6-50 Mg Tab, 2 TAB PO BID for Constipation, #120 TAB 3 Refills Prov:Aleena August MD R3 12/19/16 Ferrous Sulfate (Ferrous Sulfate) 325 Mg Tab, 325 MG PO BID for Nutritional Supplement, #60 TAB 0 Refills Prov:Aleena August MD R3 12/04/16 Reported Medications Vit-Ferrous Fumarate () 1 Tab Tab, 1 TAB PO DAILY for Nutritional Supplement, #30 TAB 0 Refills 11/07/16 Review of Systems General / Constitutional: No: Fever HENT: No: Headaches (Chay Sommers MD, R3) Physical Exam Narrative GENERAL: Well-nourished, well-developed patient. SKIN: Warm and dry. HEAD: Normocephalic and atraumatic. EYES: No scleral icterus. No injection or drainage. ENT: No nasal drainage noted. Mucous membranes pink. Airway patent. NECK: Supple, trachea midline. No JVD. CARDIOVASCULAR: Regular rate and rhythm without murmurs, gallops, or rubs. RESPIRATORY: Breath sounds equal bilaterally. No accessory muscle use. GENITOURINARY: Cervix: 1-2 centimeters dilated Effacement: 80 percent Station: -3 Presentation: Vertex Membranes: intact FHT's: Category: 1 Baseline: 145 Reactive: Yes Variability: Moderate Decels: None EXTREMITIES: No cyanosis or edema. BACK: Nontender without obvious deformity. No CVA tenderness. NEUROLOGICAL: Awake and alert. Motor and sensory grossly within normal limits. Five out of 5 muscle strength in all muscle groups. Normal speech. (Chay Sommers MD, R3) Caprini VTE Risk Assessment Caprini VTE Risk Assessment: No/Low Risk (score <= 1) Caprini Risk Assessment Model Point Value = 1 Point Value = 2 Point Value = 3 Point Value = 5 Age 41-60 Minor surgery BMI > 25 kg/m2 Swollen legs Varicose veins or History of unexplained or recurrent spontaneous Oral contraceptives or hormone replacement Sepsis (< 1 month) Serious lung disease, including pneumonia (< 1 month) Abnormal pulmonary function Acute myocardial infarction Congestive heart failure (< 1 month) History of inflammatory bowel disease Medical patient at bed rest Age 61-74 Arthroscopic surgery Major open surgery (> 45 min) Laparoscopic surgery (> 45 min) Malignancy Confined to bed (> 72 hours) Immobilizing plaster cast Central venous access Age >= 75 History of VTE Family history of VTE Factor V Leiden Prothrombin [id number] Lupus anticoagulant Anticardiolipin antibodies Elevated serum homocysteine Heparin-induced thrombocytopenia Other congenital or acquired thrombophilia Stroke (< 1 month) Elective arthroplasty Hip, pelvis, or leg fracture Acute spinal cord injury (< 1 month) Prophylaxis Regimen Total Risk Factor Score Risk Level Prophylaxis Regimen 0-1 Low Early ambulation 2 Moderate Order ONE of the following: *Sequential Compression Device (SCD) *Heparin 5000 units SQ BID 3-4 Higher Order ONE of the following medications: *Heparin 5000 units SQ TID *Enoxaparin/Lovenox 40 mg SQ daily (WT < 150 kg, CrCl > 30 mL/min) *Enoxaparin/Lovenox 30 mg SQ daily (WT < 150 kg, CrCl > 10-29 mL/min) *Enoxaparin/Lovenox 30 mg SQ BID (WT < 150 kg, CrCl > 30 mL/min) AND/OR *Sequential Compression Device (SCD) 5 or more Highest Order ONE of the following medications: *Heparin 5000 units SQ TID (Preferred with Epidurals) *Enoxaparin/Lovenox 40 mg SQ daily (WT < 150 kg, CrCl > 30 mL/min) *Enoxaparin/Lovenox 30 mg SQ daily (WT < 150 kg, CrCl > 10-29 mL/min) *Enoxaparin/Lovenox 30 mg SQ BID (WT < 150 kg, CrCl > 30 mL/min) AND *Sequential Compression Device (SCD) (Chay Sommers MD, R3) Data Data Orders Orders Admit To Inpatient (05/20/17 ) Diet Liquid (05/21/17 Breakfast) ^ Labor Induction (05/20/17 20:15) ^ Vaginal Insert (05/20/17 20:15) ^ Vaginal Lavage (05/20/17 20:15) Heart (05/20/17 20:15) Sodium Chloride 0.9% Flush (Ns Flush) (05/20/17 21:00) Sodium Chloride 0.9% Flush (Ns Flush) (05/20/17 20:15) Inpatient Certification (05/20/17 ) Code Status (05/20/17 20:16) Vital Signs (Adult) .Per protocol (05/20/17 20:16) Activity Oob Ad Denisha (05/20/17 20:16) Heart (05/20/17 20:16) Amnioinfusion (05/20/17 20:16) Urinary Catheter Management .ONCE (05/20/17 20:16) Lactated Ringer's 1000 Ml Inj (Lr 1000 M (05/20/17 20:16) Lactated Ringer's 1000 Ml Inj (Lr 1000 M (05/20/17 20:16) Sodium Chlorid 0.9% 500 Ml Inj (Ns 500 M (05/20/17 20:30) Sodium Chlor 0.9% 1000 Ml Inj (Ns 1000 M (05/20/17 20:36) Lidocaine 1% Inj (50 Ml) (Xylocaine 1% I (05/20/17 20:30) Citric Acid-Sodium Citrate Liq (Bicitra (05/20/17 20:30) Fentanyl Inj (Fentanyl Inj) (05/20/17 20:30) Fentanyl Inj (Fentanyl Inj) (05/20/17 20:30) Complete Blood Count With Diff (05/20/17 20:16) Hold Clot (05/20/17 20:16) Abo/Rh Blood Type (05/20/17 20:16) Urinalysis - C+S If Indicated (05/20/17 20:16) Resp Oxygen Non Rebreathe Mask (05/20/17 ) ^ Epidural / Intrathecal Infus (05/20/17 20:16) Oxytocin 30 Units-500ml Premix (Pitocin (05/20/17 20:30) Lidocaine 1% Inj (50 Ml) (Xylocaine 1% I (05/20/17 20:30) Light Mineral Oil (Muri-Lube Oil) (05/20/17 20:30) Specimen To Be Collected PRN (05/20/17 20:16) Pamg-1 Test .ONCE (05/20/17 20:19) (Chay Sommers MD, R3) Assessment/Plan Problem List: (1) Normal labor ICD Codes: O80 - Encounter for full-term uncomplicated delivery; Z37.9 - Outcome of delivery, unspecified Status: Acute Plan: Patient is here for induction of labor. GBS negative Cervical exam not favorable 1. IUP Category 1 tracing Continue monitoring Amniosure negative 2. Induction of labor Start Cervidil Leave in for 12 hours. Start oxytocin 30 minutes later if indicated Monitor for hyperstimulation 3. Seizure disorder Continue Lamictal (Chay Sommers MD, R3) Attending Attestation 41 weeks IOL Cervidil for cervical ripening. D/w Dr. August (Lakeisha Crandall MD) Chay Sommers MD, R3 May 20, 2017 20:20 Lakeisha Crandall MD May 21, 2017 09:31
[2017-05-20 20:24] VITALS: BP 108/67; PULSE 83
[2017-05-20 20:27] VITALS: RESP 18
[2017-05-20] MEDS ORDERED: CITRIC ACID-SODIUM CITRATE LIQ 30 ML UDC PO SCH (20:30)
[2017-05-20] MEDS ORDERED: LIDOCAINE HCL 1% 50 ML VIAL I-DERMAL PRN (20:30)
[2017-05-20] MEDS ORDERED: SODIUM CHLORID 0.9% 500 ML INJ 500 ML IV PRN (20:30)
[2017-05-20] MEDS ORDERED: OXYTOCIN 30 UNITS-500ML PREMIX 500 ML IV ONE (20:30)
[2017-05-20] MEDS ORDERED: MINERAL OIL 10 ML VIAL TOPICAL PRN (20:30)
[2017-05-20] MEDS: LACTATED RINGER'S 1000 ML INJ 1,000 ML IV SCH (20:30)
[2017-05-20] MEDS ORDERED: LIDOCAINE HCL 1% 50 ML VIAL INFIL PRN (20:30)
[2017-05-20] MEDS ORDERED: SODIUM CHLOR 0.9% 1000 ML INJ 1,000 ML IV PRN (20:36)
[2017-05-20] MEDS ORDERED: PRENATAL VITAMIN CHEWABLE TAB PO ONE (20:45)
[2017-05-20] MEDS ORDERED: DINOPROSTONE 10 MG VAG INSERT VAGINAL ONE (21:00)
[2017-05-20] MEDS: SODIUM CHLORIDE 0.9% FLUSH 10 ML FLUSH IV FLUSH SCH (21:00)
[2017-05-20] MEDS: FERROUS SULFATE 325 MG (65 MG ELEMENTAL IRON) TAB PO SCH (21:00)
[2017-05-20] MEDS ORDERED: LACTATED RINGER'S 1000 ML INJ 1,000 ML IV PRN (21:00)
[2017-05-20] MEDS: DOCUSATE SODIUM 50 MG/SENNA 8.6 MG TAB PO SCH (21:00)
[2017-05-20 21:35] LABS: AUTOMATED NEUTROPHIL # 4.4 TH/MM3 (1.8-7.7); BASOPHIL % 0.2 % (0.0-2.0); EOSINOPHIL # 0.1 TH/MM3 (0-0.4); EOSINOPHIL % 1.4 % (0.0-4.0); HEMATOCRIT 27.4 % (35.0-46.0); LYMPHOCYTE # 1.3 TH/MM3 (1.0-4.8); MEAN CELL VOLUME 83.4 FL (80.0-100.0); MEAN CORPUSCULAR HEMOGLOBIN 30.5 PG (27.0-34.0); MONO % 8.3 % (0.0-8.0); NEUT % 69.1 % (16.0-70.0); PLATELET COUNT 277 TH/MM3 (150-450); RED BLOOD COUNT 3.28 MIL/MM3 (4.00-5.30); RED CELL DISTRIBUTION WIDTH 14.2 % (11.6-17.2); WHITE BLOOD COUNT 6.4 TH/MM3 (4.0-11.0)
[2017-05-20 21:41] LABS: HEMO FLAGS AUTO DIFF; MEAN CORPUSCULAR HGB CONC 36.6 % (32.0-36.0)
[2017-05-20 21:56] LABS: BACTERIA, URINE OCC /hpf; BLOOD, URINE NEG (NEG); COMMENT (UR) CULT NOT INDICATED; CULTURE IF INDICATED CULT NOT INDICATED; GLUCOSE,URINE NEG (NEG); KETONE, URINE NEG (NEG); NITRITE,URINE NEG (NEG); SQUAMOUS EPITHELIAL CELL URINE 6 /hpf (0-5); URINE COLOR YELLOW (YELLW/STRAW)
[2017-05-20 22:00] VITALS: RESP 18
[2017-05-20 22:02] VITALS: BP 94/31; PULSE 73
[2017-05-20 22:23] LABS: PLATELET ESTIMATE SMEAR NORMAL (NORMAL); PLATELET MORPHOLOGY NORMAL (NORMAL); SCAN/DIFF AUTO DIFF CONFIRMED
[2017-05-21] VITALS (71 sets, daily range): BP systolic 91–134; BP diastolic 41–82; PULSE 65–89; RESP 16–20; TEMP 97.9–100; O2SAT 99–100
[2017-05-21] MEDS: LACTATED RINGER'S 1000 ML INJ 1,000 ML IV SCH ×4 (01:16→21:36)
--- NOTE | 2017-05-21 07:46 | PD.LABORPN ---
Subjective Subjective No acute events. Cervadil in place. (Aleena August MD R3) Objective Vital Signs Vital Signs Date Time Temp Pulse Resp B/P (MAP) Pulse Ox O2 Delivery O2 Flow Rate FiO2 05/21/17 07:33 70 98/53 (68) 05/21/17 07:31 98.0 16 05/21/17 06:25 18 05/21/17 06:10 18 05/21/17 05:43 18 05/21/17 05:03 73 104/45 (64) 05/21/17 05:02 98.2 18 05/21/17 04:30 18 05/21/17 02:51 18 05/21/17 02:48 72 106/50 (68) 05/21/17 01:15 98.2 05/21/17 01:09 69 107/50 (69) 05/21/17 01:07 16 05/21/17 00:38 16 Objective Pelvic Exam: Cervix: [-] Dilatation: [2] Effacement: [70%] Station: [-3] Presentation: [v] Membranes: [intact] Uterine Contractions: [irregular] FHT's: Category: [I] Baseline: [130] Reactive: [Y] Variability: [acels] Decels: [none] Weeks Gestation: 41 Gest Age Assessed Date: May 21, 2017 (First trimester) Gest Age Assessed Time: 07:53 Pt started active labor?: No Medical induction of labor?: Yes Medical induction start date: May 21, 2017 Medical induction start time: 07:53 Artificial rupture of membrane: No (Aleena August MD R3) Assessment/Plan Problem List: (1) Normal labor ICD Codes: O80 - Encounter for full-term uncomplicated delivery; Z37.9 - Outcome of delivery, unspecified Status: Acute Plan: Patient is here for induction of labor. GBS negative Cervical exam not favorable 1. IUP Category 1 tracing Continue monitoring Amniosure negative 2. Induction of labor Continue Cervidil Start Pitocin 3. Seizure disorder Continue Lamictal (Aleena August MD R3) Assessment and Plan 41 weeks IOL s/p Cervidil for cervical ripening overnight SVE this am /-3 intact, Cervidil removed FHT reassuring at this time Will start Pitocin augmentation (Lakeisha Crandall MD) Aleena August MD R3 May 21, 2017 07:46 Lakeisha Crandall MD May 21, 2017 09:33
[2017-05-21] MEDS ORDERED: lamoTRIgine 100 MG TAB PO SCH (09:00)
[2017-05-21] MEDS: SODIUM CHLORIDE 0.9% FLUSH 10 ML FLUSH IV FLUSH SCH ×2 (09:00→21:00)
[2017-05-21] MEDS ORDERED: OXYTOCIN 30 UNITS-500ML PREMIX 500 ML IV SCH ×3 (09:30→14:00)
[2017-05-21] MEDS: DOCUSATE SODIUM 50 MG/SENNA 8.6 MG TAB PO SCH (09:52)
[2017-05-21] MEDS: FERROUS SULFATE 325 MG (65 MG ELEMENTAL IRON) TAB PO SCH (09:52)
[2017-05-21] MEDS ORDERED: fentaNYL 2MCG-BUPIV 0.125% INJ 100 ML ONE (11:39)
[2017-05-21] MEDS ORDERED: ePHEDrine/NS 25 MG/5 ML SYR ONE (11:39)
[2017-05-21] MEDS ORDERED: OXYTOCIN 10 UNIT/ML AMP OTHER ONE (12:00)
[2017-05-21] MEDS ORDERED: KETOROLAC TROMETHAMINE 30 MG/ML (IVP) VIAL IV PUSH ONE (12:00)
[2017-05-21] MEDS ORDERED: PROPOFOL 200 MG/20 ML AMP IV ONE (12:00)
[2017-05-21] MEDS ORDERED: LIDOCAINE 2%/EPINEPHrine PF 1:200,000 20ML SDV INFIL ONE (12:00)
[2017-05-21] MEDS ORDERED: ONDANSETRON HCL 4 MG/2 ML VIAL IV PUSH ONE (12:00)
[2017-05-21] MEDS ORDERED: MORPHINE SULFATE PF 5 MG/10 ML VIAL ONE (12:00)
[2017-05-21] MEDS ORDERED: LACTATED RINGER'S 1000 ML INJ 1,000 ML IV ONE ×2 (12:00→21:06)
--- NOTE | 2017-05-21 12:00 | PD.LABORPN ---
Subjective Subjective Cervadil removed. Patient has no complaints. Objective Vital Signs Vital Signs Date Time Temp Pulse Resp B/P (MAP) Pulse Ox O2 Delivery O2 Flow Rate FiO2 05/21/17 11:31 65 124/73 (90) 05/21/17 11:05 70 114/61 (78) 05/21/17 10:34 72 110/50 (70) 05/21/17 10:33 18 05/21/17 09:08 71 16 91/51 (64) 05/21/17 07:33 70 98/53 (68) 05/21/17 07:31 98.0 16 05/21/17 06:25 18 05/21/17 06:10 18 05/21/17 05:43 18 05/21/17 05:03 73 104/45 (64) 05/21/17 05:02 98.2 18 05/21/17 04:30 18 Objective Pelvic Exam: Cervix: mid position Dilatation: 5cm Effacement: 90% Station: -1 Presentation: vertex Membranes: intact Uterine Contractions: yes FHT's: Category: 1 Baseline: 130 Reactive: absent accel Variability: min Decels: absent Weeks Gestation: 41 Gest Age Assessed Date: May 21, 2017 (First trimester) Gest Age Assessed Time: 07:53 Pt started active labor?: No Medical induction of labor?: Yes Medical induction start date: May 21, 2017 Medical induction start time: 07:53 Artificial rupture of membrane: No Assessment/Plan Problem List: (1) Normal labor ICD Codes: O80 - Encounter for full-term uncomplicated delivery; Z37.9 - Outcome of delivery, unspecified Status: Acute Plan: Patient @41 weeks admitted for induction of labor. GBS neg. //Active labor - 5 cm - Cervadil d/c - Pitocin started this AM - will AROM after epidural placement Recheck in 4 hrs Yun Naylor MD R1 May 21, 2017 12:00
[2017-05-21] MEDS ORDERED: NO SYSTEM NARCOTICS PRN (13:30)
[2017-05-21] MEDS ORDERED: DO NOT ADMINISTER ANTICOAGULANTS PRN (13:30)
[2017-05-21] MEDS ORDERED: fentaNYL 2MCG-BUPIV 0.125% 100 ML EPIDURAL SCH (13:30)
[2017-05-21] MEDS ORDERED: ePHEDrine/NS 25 MG/5 ML SYR IV PUSH PRN (13:30)
--- NOTE | 2017-05-21 14:33 | PD.LABORPN ---
Subjective Subjective Patient was artificially ruptured. Objective Vital Signs Vital Signs Date Time Temp Pulse Resp B/P (MAP) Pulse Ox O2 Delivery O2 Flow Rate FiO2 05/21/17 13:45 97.9 05/21/17 13:35 69 05/21/17 13:31 68 113/63 (80) 05/21/17 13:30 73 05/21/17 13:15 71 05/21/17 13:10 73 05/21/17 13:05 71 05/21/17 13:01 73 111/71 (84) 05/21/17 13:00 70 05/21/17 12:55 76 05/21/17 12:50 75 05/21/17 12:45 72 109/63 (78) 05/21/17 12:45 68 05/21/17 12:40 71 119/63 (81) 05/21/17 12:40 78 05/21/17 12:35 69 124/69 (87) 05/21/17 12:35 67 05/21/17 12:30 69 05/21/17 12:30 67 115/73 (87) 05/21/17 12:26 71 121/82 (95) 05/21/17 12:25 72 05/21/17 12:20 73 05/21/17 12:20 65 117/66 (83) 05/21/17 12:15 68 123/74 (90) 05/21/17 12:15 68 05/21/17 12:12 69 132/68 (89) 05/21/17 12:10 76 05/21/17 12:09 74 134/75 (94) 05/21/17 12:05 70 05/21/17 12:00 75 134/76 (95) 05/21/17 11:31 65 124/73 (90) 05/21/17 11:05 70 114/61 (78) 05/21/17 10:34 72 110/50 (70) 05/21/17 10:33 18 05/21/17 09:08 71 16 91/51 (64) 05/21/17 07:33 70 98/53 (68) 05/21/17 07:31 98.0 16 05/21/17 06:25 18 Objective Pelvic Exam: Cervix: mid Dilatation: 5 Effacement: 50 Station: -1 Presentation: [-] Membranes: rupture Uterine Contractions: yes FHT's: Category: 1 Baseline: 140 Reactive: yes Variability: moderate Decels: variable Weeks Gestation: 41 Gest Age Assessed Date: May 21, 2017 (First trimester) Gest Age Assessed Time: 07:53 Pt started active labor?: No Medical induction of labor?: Yes Medical induction start date: May 21, 2017 Medical induction start time: 07:53 Artificial rupture of membrane: Yes Artificial ROM date: May 21, 2017 Artifical ROM time: 02:00 Assessment/Plan Problem List: (1) Normal labor ICD Codes: O80 - Encounter for full-term uncomplicated delivery; Z37.9 - Outcome of delivery, unspecified Status: Acute Plan: Patient @41 weeks admitted for induction of labor. GBS neg. //Active labor - 5 cm - epidural placed - AROM @2pm - on Pit 30 Recheck in 1-2 hr Yun Naylor MD R1 May 21, 2017 14:33
--- NOTE | 2017-05-21 16:58 | PD.LABORPN ---
Subjective Subjective IUPC placed. pitocin at 6 mlu/min Objective Vital Signs Vital Signs Date Time Temp Pulse Resp B/P (MAP) Pulse Ox O2 Delivery O2 Flow Rate FiO2 05/21/17 16:31 75 122/59 (80) 05/21/17 16:27 74 121/76 (91) 05/21/17 16:15 98.4 18 05/21/17 15:01 74 100/47 (64) 05/21/17 14:31 73 122/58 (79) 05/21/17 14:05 72 05/21/17 14:00 74 05/21/17 14:00 70 126/71 (89) 05/21/17 13:55 70 05/21/17 13:50 69 05/21/17 13:45 97.9 05/21/17 13:45 71 16 05/21/17 13:40 72 05/21/17 13:35 69 05/21/17 13:31 68 113/63 (80) 05/21/17 13:30 73 05/21/17 13:15 71 05/21/17 13:10 73 05/21/17 13:05 71 05/21/17 13:01 73 111/71 (84) 05/21/17 13:00 70 05/21/17 12:55 76 05/21/17 12:50 75 05/21/17 12:45 72 109/63 (78) 05/21/17 12:45 68 05/21/17 12:40 71 119/63 (81) 05/21/17 12:40 78 05/21/17 12:35 69 124/69 (87) 05/21/17 12:35 67 05/21/17 12:30 69 05/21/17 12:30 67 115/73 (87) 05/21/17 12:26 71 121/82 (95) 05/21/17 12:25 72 05/21/17 12:20 73 05/21/17 12:20 65 117/66 (83) 05/21/17 12:15 68 123/74 (90) 05/21/17 12:15 68 05/21/17 12:12 69 132/68 (89) 05/21/17 12:10 76 05/21/17 12:09 74 134/75 (94) 05/21/17 12:05 70 05/21/17 12:00 75 134/76 (95) 05/21/17 11:31 65 124/73 (90) 05/21/17 11:05 70 114/61 (78) 05/21/17 10:34 72 110/50 (70) 05/21/17 10:33 18 05/21/17 09:08 71 16 91/51 (64) Objective Pelvic Exam: Cervix: mid Dilatation: 6 Effacement: 90 Station: 0 Presentation: vertex Membranes: ruptured Uterine Contractions: yes, q2-3 min FHT's: Category: - Baseline: 140 Reactive: yes Variability: mod Decels: variable Weeks Gestation: 41 Gest Age Assessed Date: May 21, 2017 (First trimester) Gest Age Assessed Time: 07:53 Pt started active labor?: No Active labor start date: May 21, 2017 Active labor start time: 13:00 Medical induction of labor?: Yes Medical induction start date: May 21, 2017 Medical induction start time: 07:53 Artificial rupture of membrane: Yes Artificial ROM date: May 21, 2017 Artifical ROM time: 02:00 Assessment/Plan Problem List: (1) Normal labor ICD Codes: O80 - Encounter for full-term uncomplicated delivery; Z37.9 - Outcome of delivery, unspecified Status: Acute Assessment and Plan Patient @41 weeks admitted for induction of labor. GBS neg. //Active labor - 6 cm after 2 hr - IUPC placed - AROM @2pm - con't oxytocin drip Recheck in 1-[address] August and Yun Colon MD R1 May 21, 2017 16:58
--- NOTE | 2017-05-21 20:11 | PD.LABORPN ---
Subjective Subjective Patient lying comfortably in bed Objective Vital Signs Vital Signs Date Time Temp Pulse Resp B/P (MAP) Pulse Ox O2 Delivery O2 Flow Rate FiO2 05/21/17 20:00 75 122/55 (77) 05/21/17 19:30 77 111/61 (78) 05/21/17 19:18 99.1 20 05/21/17 19:00 89 125/66 (85) 05/21/17 18:30 75 112/62 (79) 05/21/17 18:03 98.9 16 05/21/17 18:01 76 110/41 (64) 05/21/17 17:31 72 102/47 (65) 05/21/17 17:05 18 05/21/17 17:00 70 119/69 (86) 05/21/17 16:31 75 122/59 (80) 05/21/17 16:27 74 121/76 (91) 05/21/17 16:15 98.4 18 05/21/17 15:01 74 100/47 (64) 05/21/17 14:31 73 122/58 (79) 05/21/17 14:05 72 05/21/17 14:00 74 05/21/17 14:00 70 126/71 (89) 05/21/17 13:55 70 05/21/17 13:50 69 05/21/17 13:45 97.9 05/21/17 13:45 71 16 05/21/17 13:40 72 05/21/17 13:35 69 05/21/17 13:31 68 113/63 (80) 05/21/17 13:30 73 05/21/17 13:15 71 05/21/17 13:10 73 05/21/17 13:05 71 05/21/17 13:01 73 111/71 (84) 05/21/17 13:00 70 05/21/17 12:55 76 05/21/17 12:50 75 05/21/17 12:45 72 109/63 (78) 05/21/17 12:45 68 05/21/17 12:40 71 119/63 (81) 05/21/17 12:40 78 05/21/17 12:35 69 124/69 (87) 05/21/17 12:35 67 05/21/17 12:30 69 05/21/17 12:30 67 115/73 (87) 05/21/17 12:26 71 121/82 (95) 05/21/17 12:25 72 05/21/17 12:20 73 05/21/17 12:20 65 117/66 (83) 05/21/17 12:15 68 123/74 (90) 05/21/17 12:15 68 05/21/17 12:12 69 132/68 (89) 05/21/17 12:10 76 05/21/17 12:09 74 134/75 (94) Objective Pelvic Exam: Cervix: Dilatation: [6-7] Effacement: [90% with swelling at 12:00 and caput] Station: [0] Presentation: [v] Membranes: [ruptured] Uterine Contractions: [3-4] FHT's: Category: [1] Baseline: [130] Reactive: [y] Variability: [acels] Decels: [none] Weeks Gestation: 41 Gest Age Assessed Date: May 21, 2017 (First trimester) Gest Age Assessed Time: 07:53 Pt started active labor?: No Active labor start date: May 21, 2017 Active labor start time: 13:00 Medical induction of labor?: Yes Medical induction start date: May 21, 2017 Medical induction start time: 07:53 Artificial rupture of membrane: Yes Artificial ROM date: May 21, 2017 Artifical ROM time: 02:00 Assessment/Plan Problem List: (1) Normal labor ICD Codes: O80 - Encounter for full-term uncomplicated delivery; Z37.9 - Outcome of delivery, unspecified Status: Acute Assessment and Plan Patient @41 weeks admitted for induction of labor. GBS neg. //Active labor - 6-7 cm - IUPC placed - AROM @2pm - con't oxytocin drip - recheck in 1 hour - concern for arrest of labor, c/s if failure to progress Aleena August MD R3 May 21, 2017 20:11
[2017-05-21] MEDS ORDERED: diphenhydrAMINE HCL 50 MG/ML VIAL IV ONE (20:30)
[2017-05-21] MEDS ORDERED: EPIDURAL-DIPHENHYDRAMINE HCL 50 MG/ML VIAL IV PUSH PRN (22:00)
[2017-05-21] MEDS ORDERED: EPIDURAL-NALOXONE HCL 0.4 MG/ML AMP IV PUSH PRN (22:00)
[2017-05-21] MEDS ORDERED: EPIDURAL-DIPHENHYDRAMINE HCL 50 MG CAP PO PRN (22:00)
[2017-05-21] MEDS ORDERED: EPIDURAL-NO SYSTEMIC NARCOTICS PRN (22:00)
[2017-05-21] MEDS ORDERED: EPIDURAL-DO NOT ADMINISTER ANTICOAGULANTS PRN (22:00)
[2017-05-21] MEDS ORDERED: CITRIC ACID-SODIUM CITRATE LIQ 30 ML UDC PO SCH (22:45)
[2017-05-21 22:48] LABS: BLOOD GAS O2 HGB SATURATION 25 % (90-100); CORD BLOOD GAS HCO3 25 mmol/L (21-29); CORD BLOOD GAS PCO2 48 mmHG (34-78); CORD BLOOD GAS PH 7.34 (7.14-7.42); CORD BLOOD GAS PO2 16 mmHG (3.0-40.0); DRAW SITE CORD BLOOD; STAT NO
[2017-05-21] MEDS ORDERED: KETOROLAC TROMETHAMINE 60 MG/2 ML (IM) VIAL IM PRN (23:00)
[2017-05-21] MEDS ORDERED: oxyCODONE/ACETAMINOPHEN 5 MG/325 MG TAB PO PRN (23:00)
[2017-05-21] MEDS ORDERED: OXYTOCIN 30 UNITS-500ML PREMIX 500 ML IV ONE (23:00)
[2017-05-21] MEDS ORDERED: SIMETHICONE 80 MG CHEWABLE TAB PO PRN (23:00)
[2017-05-21] MEDS ORDERED: SODIUM CHLORIDE 0.9% FLUSH 10 ML FLUSH IV FLUSH PRN (23:00)
[2017-05-21] MEDS ORDERED: ONDANSETRON HCL 4 MG/2 ML VIAL IV PUSH PRN (23:00)
[2017-05-22] VITALS (7 sets, daily range): BP systolic 94–117; BP diastolic 51–72; PULSE 72–82; RESP 16–18; TEMP 97.9–98.3; O2SAT 98
--- NOTE | 2017-05-22 00:04 | MP ---
cc: BORIS SANTAMARIA MD DATE OF SURGERY: 05/21/2017 PREOPERATIVE DIAGNOSIS: 41 week intrauterine induced for post dates with failure to progress in the active phase. POSTOPERATIVE DIAGNOSIS: 41 week intrauterine induced for post dates with failure to progress in the active phase. Febrile state at the time of delivery. PROCEDURE PERFORMED Primary low transverse section. SURGEON Boris Santamaria MD. TURBINE SUBASSEMBLER: Elliott ANESTHESIA Spinal and epidural. PRE-OP NOTE The patient is a 41 year-old black female, G4, P2, at 41 weeks, induced for post dates. She had started Pitocin with A-ROM. Due to cervical dilation of 7 cm, and then had an arrest of labor with increasing caput and molding, and swelling of the cervix. There was no further progress made in spite of adequate contractions, IUPC for greater than two hours. The patient had failure to progress, failed induction. Right at the time of going to the operating room, she had a temperature of 100.0. PROCEDURE The patient was taken to the operating room and placed in supine position on the operating table. After adequate spinal anesthesia was administered she was prepped and draped for abdominal surgery. Pfannenstiel incision was made. The incision was carried through to the fascia sharply, the fascia dissected off the rectus muscle. The rectus split in the midline. The peritoneal cavity was entered sharply. The bladder blade placed on the lower edge. The visceral peritoneum was then reflected down, placed on the bladder blade. A transverse hysterotomy was made and extended bluntly bilaterally. The uterus was entered. There was clear to cloudy amniotic fluid. A female infant was delivered at 10:17 p.m. Apgars 9 and 9. Weight 3710 grams. Cultures taken of the placenta once it was delivered. Prior to that cord gas and cord blood was obtained. The placenta extracted, cultured, maternal and surfaces and then a culture done of the endometrial cavity. The hysterotomy closed with a running layer of 0 chromic followed by imbricating sutures of same. Hemostasis was achieved. Several stick ties noted. The visceral peritoneum on the bladder was reapproximated in the usual fashion. The uterus elevated, blood suctioned from the cul-de-sac and gutters. The uterus was replaced in the peritoneal cavity and the abdomen irrigated. Parietal peritoneum was closed with a running layer of 2-0 Vicryl. The rectus muscle reapproximated with stick ties, chromic and Vicryl. The fascia was closed with a running layer of 0 Vicryl. The subcutaneous tissue was reapproximated with 3-0 plain cat gut suture in running fashion. The skin was closed with subcuticular stitch of 3-0 Monocryl. Pressure dressing applied. Estimated blood loss was 500 cc. No complications, other than the patient had near febrile state at the time of delivery and was on antibiotics. Sponge and needle counts were correct x2. The patient went to Recovery in stable condition. MD JOAN Marley/CHASE /11:07 PM /11:36 PM
[2017-05-22] MEDS ORDERED: ACETAMINOPHEN 1000 MG/100 ML VIAL IV ONE (01:00)
[2017-05-22] MEDS ORDERED: LACTATED RINGER'S 1000 ML INJ 1,000 ML IV SCH (03:51)
[2017-05-22] MEDS: ceFAZolin 2 GM PREMIX 50 ML IV SCH ×3 (05:23→20:29)
[2017-05-22] MEDS: IBUPROFEN 600 MG TAB PO PRN ×3 (06:01→20:31)
[2017-05-22 06:07] LABS: AUTOMATED NEUTROPHIL # 10.8 TH/MM3 (1.8-7.7); BASOPHIL % 0.1 % (0.0-2.0); EOSINOPHIL % 0.2 % (0.0-4.0); HEMATOCRIT 22.8 % (35.0-46.0); HEMO FLAGS DIFF FINAL; LYMPH % 9.1 % (9.0-44.0); LYMPHOCYTE # 1.2 TH/MM3 (1.0-4.8); MEAN CELL VOLUME 84.7 FL (80.0-100.0); MEAN CORPUSCULAR HEMOGLOBIN 29.8 PG (27.0-34.0); MEAN CORPUSCULAR HGB CONC 35.2 % (32.0-36.0); MONO % 4.9 % (0.0-8.0); NEUT % 85.7 % (16.0-70.0); PLATELET COUNT 206 TH/MM3 (150-450); RED BLOOD COUNT 2.69 MIL/MM3 (4.00-5.30); RED CELL DISTRIBUTION WIDTH 13.9 % (11.6-17.2); WHITE BLOOD COUNT 12.6 TH/MM3 (4.0-11.0)
--- NOTE | 2017-05-22 07:41 | HHI.OB ---
Subjective Post Operative Day: 1 Remarks Doing well , mason diet , ambulating to bathroom + voiding no BM Objective Vitals/I&O Vital Signs Date Time Temp Pulse Resp B/P (MAP) Pulse Ox O2 Delivery O2 Flow Rate FiO2 05/22/17 05:00 97.9 05/22/17 05:00 80 18 97/51 (66) 05/22/17 01:33 98.1 72 18 98/60 (73) 05/22/17 00:02 98 05/22/17 00:02 76 18 117/72 (87) 05/21/17 23:54 98.5 05/21/17 23:45 82 122/76 (91) 05/21/17 23:45 18 100 05/21/17 23:38 85 18 117/82 (94) 05/21/17 23:38 99 05/21/17 23:23 85 18 109/62 (78) 100 05/21/17 23:15 99.1 80 18 123/70 (87) 100 05/21/17 21:23 100.0 05/21/17 21:00 79 130/73 (92) 05/21/17 20:44 18 05/21/17 20:31 127/74 (91) 05/21/17 20:04 20 05/21/17 20:00 75 122/55 (77) 05/21/17 19:30 77 111/61 (78) 05/21/17 19:18 99.1 20 05/21/17 19:00 89 125/66 (85) 05/21/17 18:30 75 112/62 (79) 05/21/17 18:03 98.9 16 05/21/17 18:01 76 110/41 (64) 05/21/17 17:31 72 102/47 (65) 05/21/17 17:05 18 05/21/17 17:00 70 119/69 (86) 05/21/17 16:31 75 122/59 (80) 05/21/17 16:27 74 121/76 (91) 05/21/17 16:15 98.4 18 05/21/17 15:01 74 100/47 (64) 05/21/17 14:31 73 122/58 (79) 05/21/17 14:05 72 05/21/17 14:00 74 05/21/17 14:00 70 126/71 (89) 05/21/17 13:55 70 05/21/17 13:50 69 05/21/17 13:45 97.9 05/21/17 13:45 71 16 05/21/17 13:40 72 05/21/17 13:35 69 05/21/17 13:31 68 113/63 (80) 05/21/17 13:30 73 05/21/17 13:15 71 05/21/17 13:10 73 05/21/17 13:05 71 05/21/17 13:01 73 111/71 (84) 05/21/17 13:00 70 05/21/17 12:55 76 05/21/17 12:50 75 05/21/17 12:45 72 109/63 (78) 05/21/17 12:45 68 05/21/17 12:40 71 119/63 (81) 05/21/17 12:40 78 05/21/17 12:35 69 124/69 (87) 05/21/17 12:35 67 05/21/17 12:30 69 05/21/17 12:30 67 115/73 (87) 05/21/17 12:26 71 121/82 (95) 05/21/17 12:25 72 05/21/17 12:20 73 05/21/17 12:20 65 117/66 (83) 05/21/17 12:15 68 123/74 (90) 05/21/17 12:15 68 05/21/17 12:12 69 132/68 (89) 05/21/17 12:10 76 05/21/17 12:09 74 134/75 (94) 05/21/17 12:05 70 05/21/17 12:00 75 134/76 (95) 05/21/17 11:31 65 124/73 (90) 05/21/17 11:05 70 114/61 (78) 05/21/17 10:34 72 110/50 (70) 05/21/17 10:33 18 05/21/17 09:08 71 16 91/51 (64) Result Diagram: 05/22/17 0549 Objective Remarks GENERAL: Well-nourished, well-developed patient. CARDIOVASCULAR: Regular rate and rhythm without murmurs, gallops, or rubs. RESPIRATORY: Breath sounds equal bilaterally. No accessory muscle use. ABDOMEN/GI: Abdomen soft, non-tender, bowel sounds present. Incision: Clean, dry and intact. Fundus: Firm, non-tender at umbilicus. GENITOURINARY: Light to moderate bleeding. EXTREMITIES: No cyanosis or edema, non-tender, without signs of DVT. Medications and IVs Current Medications Medications (Trade) Dose Ordered Sig/Betsey Route Start Time Stop Time Status Last Admin Lactated Ringer's 1,000 ml @ 125 mls/hr Q8H IV 05/20/17 21:00 05/21/17 12:57 Lactated Ringer's 1,000 ml @ 3,000 mls/hr Q20M PRN IV 05/20/17 21:00 Sodium Chloride 500 ml @ 1,000 mls/hr ONCE PRN IV 05/20/17 20:30 06/09/17 20:29 Sodium Chloride 1,000 ml @ 100 mls/hr Q10H PRN IV 05/20/17 20:36 (Xylocaine 1% Inj (50 ml)) 0.1 ml UNSCH X1 PRN I-DERMAL 05/20/17 20:30 05/23/17 20:29 (Bicitra Liq) 30 ml CMA OR LPN PO 05/20/17 20:30 05/24/17 20:29 05/21/17 21:19 (fentaNYL INJ) 50 mcg Q1H PRN IV PUSH 05/20/17 20:30 05/21/17 05:02 (fentaNYL INJ) 100 mcg Q1H PRN IV PUSH 05/20/17 20:30 05/21/17 10:33 (Xylocaine 1% Inj (50 ml)) 10 ml UNSCH X1 PRN INFIL 05/20/17 20:30 05/22/17 20:29 (Muri-Lube Oil) 10 ml UNSCH PRN TOPICAL 05/20/17 20:30 (Ferrous Sulfate) 325 mg BID PO 05/20/17 21:00 05/21/17 09:52 (Yue-Colace) 2 tab BID PO 05/20/17 21:00 05/21/17 09:52 Non-Formulary Medication 1 tab DAILY PO 05/21/17 09:00 UNV Miscellaneous Information No systemic narcotics to be given except... UNSCH PRN .XX 05/21/17 13:30 05/22/17 13:29 Miscellaneous Information DO NOT ADMINISTER ANY ANTICOAGUL... UNSCH PRN .XX 05/21/17 13:30 05/22/17 13:29 Fentanyl/ Bupivacaine HCl 100 ml @ 10 mls/hr TITRATE EPIDURAL 05/21/17 13:30 05/21/17 17:05 (ePHEDrine/NS 25 MG/5 ML SYR) 10 mg UNSCH PRN IV PUSH 05/21/17 13:30 05/22/17 13:29 Oxytocin 500 ml @ 0 mls/hr TITRATE IV 05/21/17 14:00 (LaMICtal) 150 mg BID PO 05/21/17 21:00 Lactated Ringer's 1,000 ml @ 150 mls/hr Q6H40M IV 05/21/17 21:36 05/21/17 21:36 (Bicitra Liq) 30 ml CMA OR LPN PO 05/21/17 22:45 05/25/17 22:44 Cefazolin Sodium 1000 mg/Sodium Chloride 100 ml @ 200 mls/hr CMA OR LPN IV 05/21/17 22:15 05/25/17 22:14 05/21/17 21:20 Lactated Ringer's 1,000 ml @ 100 mls/hr Q10H IV 05/22/17 03:51 05/22/17 23:50 Oxytocin 500 ml @ 100 mls/hr UNSCH X1 PRN IV 05/22/17 09:00 05/23/17 08:59 (NS Flush) 2 ml BID IV FLUSH 05/22/17 09:00 (NS Flush) 2 ml UNSCH PRN IV FLUSH 05/21/17 23:00 (Mylicon Chew) 80 mg QID PRN PO 05/21/17 23:00 (Motrin) 600 mg Q6H PRN PO 05/21/17 23:00 05/22/17 06:01 (Toradol Inj) 60 mg UNSCH X1 PRN IM 05/21/17 23:00 05/22/17 22:59 (Percocet 5-325 Mg) 1 tab Q4H PRN PO 05/21/17 23:00 (Percocet 5-325 Mg) 2 tab Q4H PRN PO 05/21/17 23:00 (M-M-R Ii Inj) 0.5 ml ONCE ONCE SQ 05/22/17 16:00 05/22/17 16:01 (Boostrix Inj) 0.5 ml ONCE ONCE IM 05/22/17 16:00 05/22/17 16:01 (Zofran Inj) 4 mg Q6H PRN IV PUSH 05/21/17 23:00 Cefazolin Sodium/ Dextrose 50 ml @ 100 mls/hr Q8H IV 05/22/17 04:00 05/22/17 05:23 Miscellaneous Information NO SYSTEMIC NARCOTICS TO BE GIVEN FO... UNSCH PRN .XX 05/21/17 22:00 05/22/17 21:59 (Narcan Inj) 0.4 mg UNSCH PRN IV PUSH 05/21/17 22:00 05/22/17 21:59 (Benadryl Inj) 25 mg Q6H PRN IV PUSH 05/21/17 22:00 05/22/17 21:59 (Benadryl) 50 mg Q6H PRN PO 05/21/17 22:00 05/22/17 21:59 Miscellaneous Information ALL NURSING DEPARTMENTS UNSCH PRN .XX 05/21/17 22:00 05/22/17 21:59 Assessment/Plan Problem List: (1) Normal labor ICD Codes: O80 - Encounter for full-term uncomplicated delivery; Z37.9 - Outcome of delivery, unspecified Status: Acute Assessment and Plan POD 1 AFVSS incision looks good , making normal progress cont. postop care Jaspreet Santamaria II, MD May 22, 2017 07:41
[2017-05-22] MEDS ORDERED: SODIUM CHLORIDE 0.9% FLUSH 10 ML FLUSH IV FLUSH SCH (09:00)
[2017-05-22] MEDS ORDERED: OXYTOCIN 30 UNITS-500ML PREMIX 500 ML IV PRN (09:00)
[2017-05-22] MEDS: DOCUSATE SODIUM 50 MG/SENNA 8.6 MG TAB PO SCH ×2 (09:17→20:30)
[2017-05-22] MEDS: oxyCODONE/ACETAMINOPHEN 5 MG/325 MG TAB PO PRN ×3 (09:17→20:31)
[2017-05-22] MEDS: FERROUS SULFATE 325 MG (65 MG ELEMENTAL IRON) TAB PO SCH ×2 (09:18→20:30)
[2017-05-22] MEDS: lamoTRIgine 100 MG TAB PO SCH ×2 (09:19→20:30)
--- NOTE | 2017-05-22 12:53 | HHI.PR ---
Addendum to Inpatient Note Addendum Reason: Additional Documentation Additional Information Patient seen and examined. Incision c/d/i. + Urination, no BM/ Tolerating solid foods. Complains of mild pain, relieved with PO pain medications. Ambulating well. Patient is bottle feeding. Plan: - Continue post care - Pain relief with Percocet and Motrin - Continue ambulation - Anticipate d/c tomorrow - DC abx after 24 hours - For control, patient would like Depo Provera - Anticipate d/c tomorrow Aleena August MD R3 May 22, 2017 12:53
[2017-05-22] MEDS ORDERED: medroxyPROGESTERone ACETATE SUSP 150 MG/ML SYRINGE IM ONE (13:00)
[2017-05-22] MEDS ORDERED: MEASLES, MUMPS, RUBELLA VACCINE 0.5 ML VIAL SQ ONE (16:00)
[2017-05-22] MEDS ORDERED: DIPHTH/TETANUS/ACEL PERTUSSIS (BOOSTER) 0.5 ML VIAL/PFS IM ONE (16:00)
[2017-05-22] MEDS: LACTATED RINGER'S 1000 ML INJ 1,000 ML IV SCH ×2 (17:36→19:36)
[2017-05-22] MEDS ORDERED: INFLUENZA VIRUS VACCINE (QUADRIVALENT) 0.5 ML SYR IM ONE (17:45)
[2017-05-23] MEDS: LACTATED RINGER'S 1000 ML INJ 1,000 ML IV SCH ×3 (00:16→06:56)
[2017-05-23] MEDS: IBUPROFEN 600 MG TAB PO PRN ×2 (03:05→08:46)
[2017-05-23] MEDS: ceFAZolin 2 GM PREMIX 50 ML IV SCH (03:05)
[2017-05-23] MEDS: oxyCODONE/ACETAMINOPHEN 5 MG/325 MG TAB PO PRN (03:05)
[2017-05-23 08:00] VITALS: BP 96/57; PULSE 83; RESP 15; TEMP 98.1
[2017-05-23] MEDS: lamoTRIgine 100 MG TAB PO SCH (08:46)
[2017-05-23] MEDS: DOCUSATE SODIUM 50 MG/SENNA 8.6 MG TAB PO SCH (08:46)
[2017-05-23] MEDS: FERROUS SULFATE 325 MG (65 MG ELEMENTAL IRON) TAB PO SCH (08:47)
--- NOTE | 2017-05-23 08:50 | HHI.OB ---
Subjective Post Operative Day: 2 Remarks Postoperative day number 2. AFVSS overnight. Pain minimal. Incision not draining. Decreased lochia. Denies dysuria. No breast tenderness. She is feeding the baby via breast. Appetite good. No nausea or vomiting. Endorses flatus. Endorses bowel movement. Ambulating well. Denies calf pain, shortness of breath, or cough. Otherwise, she is doing well this morning and has no other complaints. (Ihsan Maria MD, R2) Objective Vitals/I&O Vital Signs Date Time Temp Pulse Resp B/P (MAP) Pulse Ox O2 Delivery O2 Flow Rate FiO2 05/22/17 20:31 80 18 116/64 (81) 05/22/17 20:31 98.3 05/22/17 16:57 98.0 79 18 114/61 (78) 05/22/17 12:00 98.1 72 18 96/60 (72) 05/22/17 09:00 98.0 82 16 94/52 (66) (Ihsan Maria MD, R2) Result Diagram: 05/22/17 0549 Objective Remarks GENERAL: Well-nourished, well-developed patient. CARDIOVASCULAR: Regular rate and rhythm without murmurs, gallops, or rubs. RESPIRATORY: Breath sounds equal bilaterally. No accessory muscle use. ABDOMEN/GI: Abdomen soft, non-tender, bowel sounds present. Incision: Clean, dry and intact. Fundus: Firm, non-tender at umbilicus. GENITOURINARY: Light to moderate bleeding. EXTREMITIES: No cyanosis or edema, non-tender, without signs of DVT. Medications and IVs Current Medications Medications (Trade) Dose Ordered Sig/Betsey Route Start Time Stop Time Status Last Admin Lactated Ringer's 1,000 ml @ 125 mls/hr Q8H IV 05/20/17 21:00 05/21/17 12:57 Lactated Ringer's 1,000 ml @ 3,000 mls/hr Q20M PRN IV 05/20/17 21:00 Sodium Chloride 500 ml @ 1,000 mls/hr ONCE PRN IV 05/20/17 20:30 06/09/17 20:29 Sodium Chloride 1,000 ml @ 100 mls/hr Q10H PRN IV 05/20/17 20:36 (Xylocaine 1% Inj (50 ml)) 0.1 ml UNSCH X1 PRN I-DERMAL 05/20/17 20:30 05/23/17 20:29 (Bicitra Liq) 30 ml [employer] PO 05/20/17 20:30 05/24/17 20:29 05/21/17 21:19 (fentaNYL INJ) 50 mcg Q1H PRN IV PUSH 05/20/17 20:30 05/21/17 05:02 (fentaNYL INJ) 100 mcg Q1H PRN IV PUSH 05/20/17 20:30 05/21/17 10:33 (Muri-Lube Oil) 10 ml UNSCH PRN TOPICAL 05/20/17 20:30 (Ferrous Sulfate) 325 mg BID PO 05/20/17 21:00 05/23/17 08:47 (Yue-Colace) 2 tab BID PO 05/20/17 21:00 05/23/17 08:46 Non-Formulary Medication 1 tab DAILY PO 05/21/17 09:00 UNV Fentanyl/ Bupivacaine HCl 100 ml @ 10 mls/hr TITRATE EPIDURAL 05/21/17 13:30 05/21/17 17:05 Oxytocin 500 ml @ 0 mls/hr TITRATE IV 05/21/17 14:00 (LaMICtal) 150 mg BID PO 05/21/17 21:00 05/23/17 08:46 Lactated Ringer's 1,000 ml @ 150 mls/hr Q6H40M IV 05/21/17 21:36 05/21/17 21:36 (Bicitra Liq) 30 ml [employer] PO 05/21/17 22:45 05/25/17 22:44 Cefazolin Sodium 1000 mg/Sodium Chloride 100 ml @ 200 mls/hr [employer] IV 05/21/17 22:15 05/25/17 22:14 05/21/17 21:20 Oxytocin 500 ml @ 100 mls/hr UNSCH X1 PRN IV 05/22/17 09:00 05/23/17 08:59 (NS Flush) 2 ml BID IV FLUSH 05/22/17 09:00 05/22/17 20:34 (NS Flush) 2 ml UNSCH PRN IV FLUSH 05/21/17 23:00 05/23/17 03:05 (Mylicon Chew) 80 mg QID PRN PO 05/21/17 23:00 (Motrin) 600 mg Q6H PRN PO 05/21/17 23:00 05/23/17 08:46 (Percocet 5-325 Mg) 1 tab Q4H PRN PO 05/21/17 23:00 05/23/17 03:05 (Percocet 5-325 Mg) 2 tab Q4H PRN PO 05/21/17 23:00 05/23/17 08:47 (Zofran Inj) 4 mg Q6H PRN IV PUSH 05/21/17 23:00 (Ihsan Maria MD, R2) Assessment/Plan Problem List: (1) Normal labor ICD Codes: O80 - Encounter for full-term uncomplicated delivery; Z37.9 - Outcome of delivery, unspecified Status: Acute Assessment and Plan 41y/o female who is POD#2 s/p CXN. -Continue routine care. -Percocet and Motrin PRN pain. -Encouraged OOB. Advised pelvic rest for 6 wks. Will need a f/u appt. in 1 wk for incision check. -Re: ctrl, she received the Depo shot -D/c today dw OB attending (Ihsan Maria MD, R2) Attending Attestation POD #2 s/p c/s doing well d/c home PP precautions One week incision check patient seen and examined. d/w Dr. Maria and Dr. Naylor (Lakeisha Crandall MD) Ihsan Maria MD, R2 May 23, 2017 08:50 Lakeisha Crandall MD May 23, 2017 09:16
--- NOTE | 2017-05-23 08:51 | HHI.DCPOC ---
Discharge Care Plan Diagnosis: (1) care following delivery Report Symptoms to Your Doctor -Temperature above 100.5 degrees -Redness, of incision or excessive or foul smelling drainage -Unusual pain or calf pain -Increased vaginal bleeding -Painful or difficulty urinating -Feelings of extreme sadness or anxiety after 2 weeks Goals to Promote Your Health * To prevent worsening of your condition and complications * To maintain your health at the optimal level Directions to Meet Your Goals Take your medications as prescribed Follow your dietary instruction Follow activity as directed Ensure plenty of rest for recovery Drink fluids for hydration Keep your appointments as scheduled Take your immunizations and boosters as scheduled If your symptoms worsen call your PCP, if no PCP go to Urgent Care Center or Emergency Room Smoking is Dangerous to Your Health. Avoid second hand smoke Call the 24-hour crisis hotline for domestic abuse at Ihsan Maria MD, R2 May 23, 2017 08:51 Lakeisha Crandall MD May 23, 2017 09:16
[2017-05-23] MEDS ORDERED: IBUP-232 PO (08:53)
[2017-05-23] MEDS ORDERED: SENN1TAB PO (08:53)
[2017-05-23] MEDS ORDERED: OXYC1TAB63 PO (08:53)
[2017-05-23] MEDS ORDERED: INFLUENZA VIRUS VACCINE (QUADRIVALENT) 0.5 ML SYR IM ONE (10:00)
== END 2017-05-23 13:33 | disposition home or self-care (01) | DRG 765 ==
LOC: H2EA 19:51 → H1EA 05-22 00:21
PROVIDERS: ADMIT Obstetrics & Gynecology; ATTEND Obstetrics & Gynecology
PROC: 3E0P7VZ Introduction of Hormone into Female Reproductive, Via Natural or Artificial Opening (ICD-10-PCS; 2017-05-20)
PROC: 10D00Z1 Extraction of Products of Conception, Low, Open Approach (ICD-10-PCS; principal; 2017-05-21)
PROC: 10907ZC Drainage of Amniotic Fluid, Therapeutic from Products of Conception, Via Natural or Artificial Opening (ICD-10-PCS; 2017-05-21)
PROC: 10H07YZ Insertion of Other Device into Products of Conception, Via Natural or Artificial Opening (ICD-10-PCS; 2017-05-21)
PROC: 3E0R3BZ Introduction of Anesthetic Agent into Spinal Canal, Percutaneous Approach (ICD-10-PCS; 2017-05-21)
PROC: 00HU33Z Insertion of Infusion Device into Spinal Canal, Percutaneous Approach (ICD-10-PCS; 2017-05-21)
DX: O48.0 Post-term pregnancy (principal); O75.2 Pyrexia during labor, not elsewhere classified; O99.354 Diseases of the nervous system complicating childbirth; G40.909 Epilepsy, unspecified, not intractable, without status epilepticus; D50.9 Iron deficiency anemia, unspecified; F17.210 Nicotine dependence, cigarettes, uncomplicated; O62.2 Other uterine inertia; O99.013 Anemia complicating pregnancy, third trimester; O99.334 Smoking (tobacco) complicating childbirth; Z37.0 Single live birth; Z3A.41 41 weeks gestation of pregnancy; Z23 Encounter for immunization
CPT/HCPCS: 59025; 81001; 82805; 84112; 85025; 86900; 86901; 87070; 88307; 90686; 90707; 90715; J0131; J0690; J1050; J1200; J1885; J2274; J2405; J2590; J3010; J7120; Q2038